=== PATIENT | male | born 1950 | race Caucasian/White ===

== ENCOUNTER → 2017-05-10 | Outpatient (CLI) | payer OTHER | END | disposition home or self-care (01) | LOC: RAD 11:08 | DX: G89.11 Acute pain due to trauma (principal) ==

== ENCOUNTER 2017-07-07 08:21 | Outpatient (CLI) | payer OTHER | END 2017-07-07 08:23 | disposition home or self-care (01) | LOC: LAB 08:21 | DX: Z13.6 Encounter for screening for cardiovascular disorders (principal); F10.29 Alcohol dependence with unspecified alcohol-induced disorder; Z13.1 Encounter for screening for diabetes mellitus; Z13.220 Encounter for screening for lipoid disorders; Z13.0 Encounter for screening for diseases of the blood and blood-forming organs and certain disorders involving the immune mechanism; Z12.5 Encounter for screening for malignant neoplasm of prostate; Z11.3 Encounter for screening for infections with a predominantly sexual mode of transmission; Z11.9 Encounter for screening for infectious and parasitic diseases, unspecified; Z12.11 Encounter for screening for malignant neoplasm of colon ==

== ENCOUNTER 2017-07-07 09:15 | Outpatient (CLI) | payer OTHER | END 2017-07-07 16:09 | disposition home or self-care (01) | LOC: SONOGRAMA 09:15 | DX: Z13.6 Encounter for screening for cardiovascular disorders (principal); F10.29 Alcohol dependence with unspecified alcohol-induced disorder ==

== ENCOUNTER → 2017-07-11 12:22 | Outpatient (CLI) | payer OTHER | END | disposition home or self-care (01) | LOC: LAB 12:22 | DX: Z13.6 Encounter for screening for cardiovascular disorders (principal); F10.29 Alcohol dependence with unspecified alcohol-induced disorder; Z13.1 Encounter for screening for diabetes mellitus; Z13.220 Encounter for screening for lipoid disorders; Z13.0 Encounter for screening for diseases of the blood and blood-forming organs and certain disorders involving the immune mechanism; Z12.5 Encounter for screening for malignant neoplasm of prostate; Z11.9 Encounter for screening for infectious and parasitic diseases, unspecified; Z11.3 Encounter for screening for infections with a predominantly sexual mode of transmission; Z12.11 Encounter for screening for malignant neoplasm of colon ==

== ENCOUNTER 2017-07-20 07:11 | Outpatient (CLI) | payer OTHER | END 2017-07-20 08:08 | disposition home or self-care (01) | LOC: LAB 07:11 | DX: E80.6 Other disorders of bilirubin metabolism (principal) ==

== ENCOUNTER 2018-04-18 07:27 | Outpatient (CLI) | payer OTHER | END 2018-04-18 07:39 | disposition home or self-care (01) | LOC: LAB 07:27 | DX: I10 Essential (primary) hypertension (principal); I25.10 Atherosclerotic heart disease of native coronary artery without angina pectoris; Z13.6 Encounter for screening for cardiovascular disorders; D64.89 Other specified anemias; N39.0 Urinary tract infection, site not specified; R10.9 Unspecified abdominal pain; E11.9 Type 2 diabetes mellitus without complications; R73.09 Other abnormal glucose; E03.8 Other specified hypothyroidism; E78.49 Other hyperlipidemia ==

== ENCOUNTER → 2018-10-28 07:23 | Outpatient (CLI) | payer OTHER | END | disposition home or self-care (01) | LOC: LAB 07:23 | DX: D64.89 Other specified anemias (principal); R10.84 Generalized abdominal pain; E03.8 Other specified hypothyroidism; E78.49 Other hyperlipidemia; E11.9 Type 2 diabetes mellitus without complications; I25.10 Atherosclerotic heart disease of native coronary artery without angina pectoris; I10 Essential (primary) hypertension; Z13.6 Encounter for screening for cardiovascular disorders ==

== ENCOUNTER 2019-01-09 09:50 | Outpatient (CLI) | payer OTHER | END 2019-01-09 15:00 | disposition home or self-care (01) | LOC: LAB 09:50 | DX: I25.2 Old myocardial infarction (principal) ==

== ENCOUNTER 2019-03-15 14:25 | Emergency (ER) | payer OTHER ==
[~2019-03-15] VITALS: Ht 170.2 cm; Wt 81.6 kg
== END 2019-03-15 16:58 | disposition home or self-care (01) ==
LOC: ER 14:25
DX: S91.321A Laceration with foreign body, right foot, initial encounter (principal); W45.8XXA Other foreign body or object entering through skin, initial encounter; Y93.89 Activity, other specified; Y92.89 Other specified places as the place of occurrence of the external cause; Y99.8 Other external cause status

== ENCOUNTER 2019-03-15 21:06 | Emergency (ER) | payer OTHER ==
[~2019-03-15] VITALS: Ht 165.1 cm; Wt 81.6 kg
== END 2019-03-15 23:19 | disposition home or self-care (01) ==
LOC: ER 21:06
DX: S91.321A Laceration with foreign body, right foot, initial encounter (principal); W45.8XXA Other foreign body or object entering through skin, initial encounter; Y93.89 Activity, other specified; Y92.89 Other specified places as the place of occurrence of the external cause; Y99.8 Other external cause status

== ENCOUNTER 2019-03-22 08:29 | Emergency (ER) | payer OTHER ==
[~2019-03-22] VITALS: Ht 167.6 cm; Wt 81.6 kg
== END 2019-03-22 09:31 | disposition home or self-care (01) ==
LOC: ER 08:29
DX: Z48.02 Encounter for removal of sutures (principal)

== ENCOUNTER → 2019-03-28 08:20 | Outpatient (CLI) | payer OTHER | END | disposition home or self-care (01) | LOC: LAB 08:20 | DX: D64.89 Other specified anemias (principal); N39.0 Urinary tract infection, site not specified; E03.8 Other specified hypothyroidism; R10.84 Generalized abdominal pain; E78.49 Other hyperlipidemia; E11.9 Type 2 diabetes mellitus without complications; R73.09 Other abnormal glucose; I10 Essential (primary) hypertension; Z13.6 Encounter for screening for cardiovascular disorders ==

== ENCOUNTER 2024-05-23 07:43 | Outpatient (CLI) | payer OTHER ==
[~2024-05-23 07:43] MED LIST: AMLODIPINE BESYL5 MG; ATORVASTATIN CA40 MG; BRILINTA60 MG; CHILDREN'S ASPI81 MG; LISINOPRIL40 MG; METOPROLOL SUCC25 MG; PLAVIX75 MG
== END 2024-05-23 07:58 | disposition home or self-care (01) ==
LOC: RAD 07:43
PROVIDERS: ATTEND Specialist
DX: R05.8 Other specified cough (principal); Z13.29 Encounter for screening for other suspected endocrine disorder

== ENCOUNTER 2025-01-03 10:34 | Emergency (ER) | payer OTHER ==
[~2025-01-03] VITALS: Ht 165.1 cm; Wt 68.0 kg
[2025-01-03 12:55] LABS: BASO % 0.7 % (0.1-1.2); EOS # 0.14 (0.04-0.54); EOS % 2.0 % (0.7-7.0); LYMPH # 1.63 (1.18-3.74); LYMPH % 22.9 % (19.3-53.1); MEAN PLATELET VOLUME 9.90 fl (9.4-12.4); MONO # 0.85 (0.24-0.82); MONO % 12.0 % (4.7-12.5); NEUT # 4.43 (1.56-6.13); NEUT % 62.3 % (34.0-71.1); RED CELL DISTRIBUTION WIDTH 14.0 % (11.6-14.4)
[2025-01-03 13:18] LABS: ALT/SGPT 26.0 U/L (12-78); AST/SGOT 16.0 U/L (15-37); BILIRUBIN TOTAL 1.37 mg/dL (0.3-1.2); BUN CREA RATIO 11.0 (7.0-25.0); CREATININE SERUM 0.75 mg/dL (0.70-1.30); GFR 101.8; GLOBULINA 3.7 G/DL (2.4-3.5); GLUCOSE FASTING 107.0 mg/dL (65-100); OSMOLALITY SERUM 267.0 MOSM/KG (275-295)
== END 2025-01-03 14:14 | disposition home or self-care (01) ==
LOC: ER 10:38
PROVIDERS: Preventive Medicine Public Health & General Preventive Medicine
DX: R42 Dizziness and giddiness (principal); I10 Essential (primary) hypertension